=== PATIENT | female | born 1985 | race Caucasian/White ===

== ENCOUNTER 2017-10-19 20:01 | Inpatient (IN) | payer BC, OTHER ==
--- NOTE | 2017-10-19 21:58 | HP ---
General Information - General Information Maternal Age: 31 Grav: 1 Para: 0 SAB: 0 IEA: 0 Estimated Due Date: 10/19/17 Determined By: LMP Gestational Age in Weeks and Days: 40 Weeks and 0 Days Maternal Blood Type and Rh: O Positive - Results this Serology/RPR Result: Non-Reactive Rubella Result: Immune HBsAg Result: Negative HIV Result: Negative GBS Culture Result: Negative Past Medical History Delivery History: See Records Pertinent Past Medical History: See Records - back pain related to "mild" scoliosis Pertinent Past Surgical History: See Records - Stewart teeth, tonsillectomy Pertinent Family History: See Records - hypothyroidism, CHF, colon CA - Antepartal Records Antepartal Records: Reviewed, Uncomplicated Review of Systems Constitutional: Uncomfortable CV Complaint: No Respiratory: Shortness of Breath: No Gastrointestinal: No Nausea/Vomiting - Mild nausea Genitourinary: No Dysuria, No Bleeding, No Leaking Fluid Musculoskeletal: Contractions Neurological: No Headache, No Visual Changes Movement: Normal Exam Allergies/Adverse Reactions: Allergies No Known Allergies Allergy (Verified 10/19/17 20:29) BP 118/76 T 36.5 HR 69 RR 20 02 100 - Measurements Height: 5 ft 5 in Weight: 149 lb Weight in lbs: 149 Body Mass Index (BMI): 24.7 Pre- Weight: 115 lb Weight Gained This : 34 lbs and 0 ozs - Exam Abdomen: No Upper Quadrant Pain Breast: Breast Exam Deferred CVA: No CVA Tenderness Extremities: No Edema Heart: Normal Rhythm/Heart Sounds HEENT: No Significant Findings Lungs: Clear Bilaterally Rectal: Rectal Exam Deferred Reflexes: DTR 2+ - no clonus - Cervical Exam by RN 4cm/100/-1 vertex - Abdominal Exam Abdomen Exam: Non-Tender Abdomen Exam Comment: Vertex by Charlie's - Membranes Membrane Status: Intact - Ultrasound/Biophysical Profile Ultrasound Status: Not Done EFM Findings - External Monitor Findings Baseline Heart Rate: 150 External Monitor Findings: Accelerations Present, No Pattern of Variable or Late Decelerations, Variability Moderate Contractions: Regular, Moderate, 45-90 Seconds Assessment/Plan - Reason for Visit Reason for Visit: IUP @ 40 weeks gestation, intact bag of conley, No evidence metabolic acidemia - Plan Plan: Early Labor - Desires CHEMO. Anticipate SVB
[2017-10-19 22:07] LABS: Hematocrit 29 % (35-47); Hemoglobin 9.6 g/dl (12.0-16.0); Mean Corpuscular HGB Conc 33 g/dl (31-36); Mean Corpuscular Hemoglobin 27 pg (27-31); Mean Corpuscular Volume 79 fL (80-97); Mean Platelet Volume 9 um3 (7.4-10.4); Platelet Count 323 10^3/ul (150-450); Red Blood Count 3.63 10^6/ul (4.0-5.4); Red Cell Distribution Width 14 % (10.5-15); White Blood Count 9.9 10^3/ul (3.5-10.8)
[2017-10-19] MEDS ORDERED: OBEPIDURAL* 250 ML EPIDURAL ONE (22:07)
[2017-10-19 22:25] LABS: ABS Basophils 0.1 10^3/ul (0-0.2); ABS Eosinophils 0.1 10^3/ul (0-0.6); ABS Lymphocytes 1.6 10^3/ul (1.0-4.8); ABS Monocytes 0.7 10^3/ul (0-0.8); ABS Neutrophils 7.5 10^3/ul (1.5-7.7); ABS Nucleated RBC 0 10^3/ul; Eosinophil % 0.7 % (0-6); Lymphocyte % 16.2 % (25-47); Nucleated Red Blood Cells % 0.1
[2017-10-19] MEDS ORDERED: Phenylephrine IV* 40 MCG/ML 10 ML SYRINGE IV PUSH PRN (22:40)
[2017-10-19] MEDS ORDERED: EPHEDrine (Pressors)* 50 MG/ML VIAL IV PUSH PRN (22:40)
[2017-10-19] MEDS ORDERED: Famotidine TAB* 20 MG PO PRN (22:40)
[2017-10-19] MEDS ORDERED: Sodium Citrate/Citric Acid* 15 ML UDC PO PRN (22:40)
[2017-10-19] MEDS ORDERED: OBEPIDURAL* 250 ML EPIDURAL SCH (23:00)
[2017-10-20] MEDS ORDERED: Oxytocin in LR* 20 UNITS/1,000 ML BAG IVPB SCH (01:00)
[2017-10-20] MEDS ORDERED: Buffered Lidocaine 0.9% SYRIN* 5 ML/SYR SYRINGE INTRADERM ONE (11:25)
[2017-10-20] MEDS ORDERED: Sodium Citrate/Citric Acid* 15 ML UDC PO ONE (11:25)
[2017-10-20] MEDS ORDERED: Famotidine IV* 10 MG/ML 2 ML (20 mg) IV ONE (11:25)
[2017-10-20] MEDS ORDERED: Famotidine IV* 10 MG/ML 2 ML (20 mg) ONE (11:33)
[2017-10-20] MEDS ORDERED: Sodium Citrate/Citric Acid* 15 ML UDC ONE (11:33)
[2017-10-20] MEDS ORDERED: OXYTOCIN* 10 UNITS/ML 1 ML VIAL ONE (11:35)
[2017-10-20] MEDS ORDERED: Ondansetron INJ* 2 MG/ML VIAL ONE (11:35)
[2017-10-20] MEDS ORDERED: Dexamethasone IV* 4 MG/ML 1 ML (4 MG) ONE (11:35)
[2017-10-20] MEDS ORDERED: Morphine PF AMP (0.5MG/ML)* 5 MG/10 ML AMP ONE (11:35)
[2017-10-20] MEDS ORDERED: ceFOXitin(*) 2 GM in NS 0.9% 100 ML* 100 ML IVPB ONE (12:00)
[2017-10-20] MEDS ORDERED: DiMENhydriNATE IV* 50 MG/ML VIAL IV PUSH PRN (12:43)
[2017-10-20] MEDS ORDERED: Scopolamine 1.5 mg* PATCH TRANSDERM PRN (12:43)
[2017-10-20] MEDS ORDERED: oxyCODONE/Acetamin 5/325 MG* TAB PO PRN ×2 (12:43)
[2017-10-20] MEDS ORDERED: Naloxone* 0.4 MG/ML 1 ML VIAL IV PRN ×2 (12:43)
[2017-10-20] MEDS ORDERED: Ondansetron INJ* 2 MG/ML VIAL IV PRN (12:43)
[2017-10-20] MEDS ORDERED: Nalbuphine* 20 MG/ML 1 ML VIAL IV PRN ×2 (12:43)
[2017-10-20] MEDS ORDERED: Acetaminophen TAB* 325 MG PO PRN (13:19)
[2017-10-20] MEDS ORDERED: Dibucaine 1% 28.35 GM TUBE PR PRN (13:19)
[2017-10-20] MEDS ORDERED: Ibuprofen TAB* 600 MG PO PRN (13:19)
[2017-10-20] MEDS ORDERED: Zolpidem TAB* 5 MG PO PRN (13:19)
[2017-10-20] MEDS ORDERED: Witch Hazel PAD* JAR TOPICAL PRN (13:19)
[2017-10-20] MEDS ORDERED: Glycerin ADULT SUPP PR PRN (13:19)
[2017-10-20] MEDS: Ketorolac INJ* 30 MG/ML 1 ML VIAL IV PRN (21:35)
[2017-10-20] MEDS: Ibuprofen TAB* 600 MG PO SCH (22:21)
[2017-10-20] MEDS: Simethicone TAB* 80 MG TAB.CHEW PO SCH (22:22)
[2017-10-20] MEDS: Docusate CAP* 100 MG PO SCH (22:22)
[2017-10-21] MEDS: Ketorolac INJ* 30 MG/ML 1 ML VIAL IV PRN (04:08)
[2017-10-21] MEDS ORDERED: oxyCODONE/Acetamin 5/325 MG* TAB PO PRN (04:43)
[2017-10-21 06:31] LABS: ABS Basophils 0 10^3/ul (0-0.2); ABS Eosinophils 0 10^3/ul (0-0.6); ABS Lymphocytes 1.6 10^3/ul (1.0-4.8); ABS Monocytes 0.9 10^3/ul (0-0.8); ABS Neutrophils 13.6 10^3/ul (1.5-7.7); ABS Nucleated RBC 0 10^3/ul; Eosinophil % 0.2 % (0-6); Hematocrit 22 % (35-47); Hemoglobin 7.2 g/dl (12.0-16.0); Lymphocyte % 10.1 % (25-47); Mean Corpuscular HGB Conc 33 g/dl (31-36); Mean Corpuscular Hemoglobin 26 pg (27-31); Mean Corpuscular Volume 79 fL (80-97); Mean Platelet Volume 9 um3 (7.4-10.4); Nucleated Red Blood Cells % 0.1; Platelet Count 232 10^3/ul (150-450); Red Blood Count 2.75 10^6/ul (4.0-5.4); Red Cell Distribution Width 15 % (10.5-15); White Blood Count 16.2 10^3/ul (3.5-10.8)
[2017-10-21] MEDS: Docusate CAP* 100 MG PO SCH ×3 (08:55→20:51)
[2017-10-21] MEDS: Simethicone TAB* 80 MG TAB.CHEW PO SCH ×4 (08:55→20:51)
[2017-10-21] MEDS: Ibuprofen TAB* 600 MG PO SCH ×3 (09:58→23:26)
[2017-10-21] MEDS: Ferrous Gluconate TAB* 324 MG TAB PO SCH ×2 (10:00→20:51)
[2017-10-21] MEDS: oxyCODONE/Acetamin 5/325 MG* TAB PO PRN ×2 (17:03→20:54)
[2017-10-22] MEDS: oxyCODONE/Acetamin 5/325 MG* TAB PO PRN ×4 (04:19→18:41)
[2017-10-22] MEDS: Ferrous Gluconate TAB* 324 MG TAB PO SCH ×2 (08:05→21:16)
[2017-10-22] MEDS: Ibuprofen TAB* 600 MG PO SCH ×3 (08:05→21:16)
[2017-10-22] MEDS: Docusate CAP* 100 MG PO SCH ×3 (08:05→21:16)
[2017-10-22] MEDS: Simethicone TAB* 80 MG TAB.CHEW PO SCH ×4 (08:05→21:16)
[2017-10-22 19:35] VITALS: BP 123/70
[2017-10-23] MEDS: Ibuprofen TAB* 600 MG PO SCH ×2 (03:18→12:49)
[2017-10-23] MEDS: oxyCODONE/Acetamin 5/325 MG* TAB PO PRN (09:22)
[2017-10-23] MEDS: Ferrous Gluconate TAB* 324 MG TAB PO SCH (12:48)
[2017-10-23] MEDS: Docusate CAP* 100 MG PO SCH (12:48)
[2017-10-23] MEDS: Simethicone TAB* 80 MG TAB.CHEW PO SCH (12:48)
--- NOTE | 2017-10-25 01:14 | OP ---
DATE OF OPERATION: 10/20/17 - ROOM #104 DATE OF : 87 SURGEON: Pietro Husain MD APPLICATIONS MANAGER: Blanca Weiner CM ANESTHESIA: Spinal. PRE-OP DIAGNOSIS: at 40 weeks in labor when arrest of descent and dilation. POST-OP DIAGNOSIS: at 40 weeks in labor when arrest of descent and dilation. OPERATIVE PROCEDURE: Primary low transverse section. ESTIMATED BLOOD LOSS: 600 cc. FLUIDS: She received 1400 cc of crystalloid fluid. URINE OUTPUT: Clear. SPECIMENS SENT TO PATHOLOGY: Cord blood. FINDINGS: Delivery of a male infant weighing 9 pounds 11 ounces with Apgars of 9 and 9. The placenta, uterus, adnexa, bowel, and bladder were all within normal limits. COMPLICATIONS: There were no complications. DESCRIPTION OF PROCEDURE: The patient was taken to the operating room, where she was identified. She was placed on the operating table, where a spinal anesthetic was obtained without difficulty. She was then placed in the supine position with a leftward tilt, prepped and draped in a normal sterile fashion. A Pfannenstiel skin incision was made with a knife and carried through to the underlying layer of fascia. The fascia was nicked in the midline and extended laterally with curved Harding scissors. The fascia was grasped superiorly and inferiorly with Aby clamps and dissected off sharply from the rectus muscle. The rectus muscle was in the midline bluntly. The peritoneum was identified, grasped with pickups, and entered sharply with Metzenbaum scissors and extended superiorly and inferiorly bluntly. A bladder blade was inserted into the patient's abdomen. A bladder flap was created using Metzenbaum scissors over which the bladder blade was then reinserted. A low transverse uterine incision was made with a knife and extended laterally with bandage scissors. The 's head was then grasped and delivered atraumatically. The rest of the infant's body was then delivered. The cord was clamped and cut. The infant was then handed off to awaiting attorney lawyer. Cord bloods were obtained. The placenta was removed manually. The uterus was then exteriorized, cleared of all clot and debris using moist laparotomy sponges. The uterine incision was then closed using 0 Polysorb suture in a running locked fashion and a second imbricating layer of 0 Polysorb suture was performed. The uterine incision was noted to be hemostatic. The uterus was then returned to the patient's abdomen. The gutters were then cleared of all clots and debris using moist laparotomy sponges. All the sponges were then removed from the patient's abdomen. The peritoneum was then closed using 3-0 Polysorb suture in a running fashion. The fascia was closed using 0 Polysorb suture in a running fashion and the skin was closed with 4-0 Monocryl subcuticular stitch. The patient tolerated the procedure well. Sponge, lap, needle counts were correct x2. She was then transferred to the recovery room area in stable condition. [id number]/[facility] #: [id number] [facility]
== END 2017-10-23 13:06 | disposition home or self-care (01) | DRG 766 ==
LOC: MCHOBOUT 20:01 → MCHOB 21:36
PROVIDERS: ADMIT Midwife; ATTEND Obstetrics & Gynecology
PROC: 10907ZC Drainage of Amniotic Fluid, Therapeutic from Products of Conception, Via Natural or Artificial Opening (ICD-10-PCS; 2017-10-20)
PROC: 10D00Z1 Extraction of Products of Conception, Low, Open Approach (ICD-10-PCS; principal; 2017-10-20 12:07)
DX: O32.4XX0 Maternal care for high head at term, not applicable or unspecified (principal); O48.0 Post-term pregnancy; O62.0 Primary inadequate contractions; Z3A.40 40 weeks gestation of pregnancy; Z37.0 Single live birth
CPT/HCPCS: 36415; 85025; 86850; 86900; 86901; A9270-GY; J0694; J1100; J1240; J1885; J2405; J2590

== ENCOUNTER 2019-03-22 08:05 | Emergency (ER) | payer BC ==
[2019-03-22 08:15] VITALS: BP 100/66
--- NOTE | 2019-03-22 08:53 | UC ---
Throat Pain/Nasal Dev HPI - HPI Summary HPI Summary: 33-year-old female with a history of strep throat 1 week ago treated with amoxicillin presents with throat pain for 1 day. Patient states she noticed worsening sore throat as well as spots on her tonsils came to urgent care. Patient has a history of a prior FORGER HELPER requiring drainage after wisdom tooth surgery several years ago. Patient denies trouble swallowing, difficulty breathing. - History of Current Complaint Chief Complaint: UCGeneralIllness Stated Complaint: SORE THROAT Time Seen by Provider: 03/22/19 08:17 Hx Last Menstrual Period: 03/22/19 Pain Intensity: 5 - Allergies/Home Medications Allergies/Adverse Reactions: Allergies Allergy/AdvReac Type Severity Reaction Status Date / Time No Known Allergies Allergy Verified 03/03/19 07:45 PMH/Surg Hx/FS Hx/Imm Hx Previously Healthy: Yes - Surgical History Surgical History: Yes Surgery Procedure, Year, and Place: c/sec - Family History Known Family History: Positive: None, Non-Contributory - Social History Alcohol Use: None Substance Use Type: None Smoking Status (MU): Never Smoked Tobacco - Immunization History Most Recent Influenza Vaccination: 05/2017 Most Recent Pneumonia Vaccination: n/a Review of Systems All Other Systems Reviewed And Are Negative: Yes ENT: Positive: Sore Throat Physical Exam - Summary Physical Exam Summary: General: Well appearing, no distress HEENT: Tonsillar erythema and hypertrophy with exudate, uvula is midline. Cardiac: tachycardic, regular, 2+ radial pulses Pulmonary: No respiratory distress, no tachypnea Abdomen: Non-distended Skin: Warm, pink, dry LAD: + cervical LAD Psych: Normal affect Neuro: A&Ox3 Vital Signs: Initial Vital Signs Temp 37.0 C 03/22/19 08:12 Pulse 110 03/22/19 08:12 Resp 18 03/22/19 08:12 BP 100/66 03/22/19 08:12 Pulse Ox 99 03/22/19 08:12 Throat Pain/Nasal Course/Dx - Course Course Of Treatment: 33 y/o female with recent strep a pharyngitis presents with sore throat for several days Vital signs notable for mild tachycardia suspect secondary to pain. Afebrile and well-appearing. Discussed with the patient we will try a different antibiotic, Keflex as she had just finished a course of amoxicillin. Also discussed with patient she could be a chronic carrier. Patient has a history of a FORGER HELPER in the past after wisdom tooth surgery. I discussed with her as possible she has a small FORGER HELPER which could be the cause for her recurrence. On exam she doesn't appear to have a FORGER HELPER and has a midline uvula. Patient given ENT referral and instructed to go to the Emergency department if she continues to have symptoms despite antibiotics, or worsening pain, trouble swallowing or difficulty breathing sent throat culture - Differential Dx/Diagnosis Provider Diagnosis: Tonsillitis Discharge - Sign-Out/Discharge Documenting (check all that apply): Patient Departure All imaging exams completed and their final reports reviewed: No Studies - Discharge Plan Condition: Stable Disposition: HOME Prescriptions: Cephalexin CAP* [Keflex CAP*] 500 mg PO BID 10 Days #20 cap Patient Education Materials: Strep Throat (DC) Referrals: Kimberlee Mukherjee MD [Primary Care Provider] - Naren Horowitz MD [Medical Doctor] - If Needed () Additional Instructions: You were seen in urgent care for sore throat, her strep test was positive. We' ll treat she was a different antibiotic called Keflex which she'll take twice a day for 10 days. Please follow up with ENT or go to the emergency department if you have continued pain, trouble swallowing or concerned - Billing Disposition and Condition Condition: STABLE Disposition: Home
--- NOTE | 2019-03-24 17:00 | UC ---
- Progress Note Progress Note: + strep Pt started on clinda in ED no change peterj 03/24/19 Course/Dx - Diagnoses Provider Diagnoses: Tonsillitis Discharge - Sign-Out/Discharge Documenting (check all that apply): Post-Discharge Follow Up All imaging exams completed and their final reports reviewed: No Studies - Discharge Plan Condition: Stable Disposition: HOME Patient Education Materials: Strep Throat (DC) Referrals: Naren Horowitz MD [Medical Doctor] - If Needed () Kimberlee Mukherjee MD [Primary Care Provider] - Additional Instructions: You were seen in urgent care for sore throat, her strep test was positive. We' ll treat she was a different antibiotic called Keflex which she'll take twice a day for 10 days. Please follow up with ENT or go to the emergency department if you have continued pain, trouble swallowing or concerned - Billing Disposition and Condition Condition: STABLE Disposition: Home
== END 2019-03-22 09:03 | disposition home or self-care (01) ==
LOC: UCEAST 08:05
DX: J03.90 Acute tonsillitis, unspecified (principal)
CPT/HCPCS: 87070; 87077; 87651; 99212; G0463

== ENCOUNTER 2019-03-24 08:21 | Emergency (ER) | payer BC ==
--- NOTE | 2019-03-24 08:38 | ED ---
Throat Pain/Nasal Congestion - HPI Summary HPI Summary: 33-year-old female presents with complaints of worsening sore throat. She was seen at the [facility] urgent care on 03/22/2019 for one-week history of sore throat. Patient tested positive for strep and was started on Keflex 500 mg twice a day. Patient had been seen and diagnosed with strep prior to this on 03/03/2019 and completed a ten-day course of amoxicillin. Patient states that over the last 2 days her sore throat has worsened and it has become more difficult to swallow. States the swelling appears to be worse on the left side of her throat. Pain is radiating into the left ear. States she had fever as high as 101 F. No fever in the last 24 hours although she has been taking ibuprofen regularly. Patient has a past history of a peritonsillar abscess. Denies dysphagia, nasal congestion, runny nose, cough, difficulty breathing, abdominal pain, nausea, or vomiting. - History of Current Complaint Chief Complaint: EDThroatPain Time Seen by Provider: 03/24/19 08:28 Hx Obtained From: Patient - Allergies/Home Medications Allergies/Adverse Reactions: Allergies Allergy/AdvReac Type Severity Reaction Status Date / Time No Known Allergies Allergy Verified 03/03/19 07:45 PMH/Surg Hx/FS Hx/Imm Hx Previously Healthy: Yes - Denies significant PMH - Cancer History Cancer Type, Location and Year: denies - Surgical History Surgery Procedure, Year, and Place: c/sec Infectious Disease History: No Infectious Disease History: Denies: Traveled Outside the [place] in Last 30 Days - Family History Known Family History: Positive: Non-Contributory - Social History Occupation: Employed Full-time Lives: With Family Alcohol Use: None Substance Use Type: Reports: None Smoking Status (MU): Never Smoked Tobacco Review of Systems Positive: Fever Eyes: Negative Positive: Sore Throat Cardiovascular: Negative Negative: Shortness Of Breath Gastrointestinal: Negative Genitourinary: Negative Musculoskeletal: Negative Skin: Negative Neurological: Negative All Other Systems Reviewed And Are Negative: No Physical Exam - Summary Physical Exam Summary: GENERAL APPEARANCE: Well developed, well nourished, alert and cooperative, and appears to be in no acute distress. EYES: Conjunctiva clear. No drainage. EARS: External auditory canals and tympanic membranes clear, hearing grossly intact. NOSE: No nasal discharge. THROAT: Pharyngeal erythema. 3+ tonsils with exudate. Large abscess with uvula deviation to the right. Mild trismus. Airway patent. NECK: Neck supple. Significant anterior cervical lymphadenopathy especially on the left. CARDIAC: Normal S1 and S2. No S3, S4 or murmurs. Rhythm is regular. There is no peripheral edema, cyanosis or pallor. Extremities are warm and well perfused. Capillary refill is less than 2 seconds. Peripheral pulses intact. LUNGS: Clear to auscultation without rales, rhonchi, wheezing or diminished breath sounds. ABDOMEN: Positive bowel sounds. Soft, nondistended, nontender. No guarding or rebound. No masses or hepatosplenomegally. MUSKULOSKELETAL: ROM intact to all extremities. No joint erythema or tenderness. Normal muscular development. Normal gait. SKIN: Skin normal color, texture and turgor with no lesions or eruptions. Triage Information Reviewed: Yes Vital Signs On Initial Exam: Initial Vitals Temp Pulse Resp BP Pulse Ox 98.6 F 98 16 124/86 99 03/24/19 08:23 03/24/19 08:23 03/24/19 08:23 03/24/19 08:23 03/24/19 08:23 Vital Signs Reviewed: Yes Diagnostics - Vital Signs Vital Signs Temp Pulse Resp BP Pulse Ox 03/24/19 08:23 98.6 F 98 16 124/86 99 - Laboratory Result Diagrams: 03/24/19 09:20 03/24/19 09:20 Lab Statement: Any lab studies that have been ordered have been reviewed, and results considered in the medical decision making process. - CT No standard instances CT Interpretation Completed By: Radiologist Summary of CT Findings: Patient Name: CARY AGUILLON Medical Record#: [id number]. Ordering Physician: Segun Meek NP Acct.#: [id number]. : 1985 Age: 33 Sex: F Location: EMERGENCY DEPARTMENT. Exam Date: 03/24/19846 ADM Status: REG ER. Order Information: CT SOFT TISSUE NECK W. Accession Number: [id number]. CPT: 06930. INDICATION: Sore throat. COMPARISON: None. TECHNIQUE: A CT scan of the neck was performed with intravenous contrast following intravenous injection of 50 ml of Omnipaque 300 nonionic contrast. Contiguous axial sections were obtained from the skull base through the lung apices. Images were reconstructed in the coronal and sagittal planes. FINDINGS : The airway is patent. The epiglottis and aryepiglottic folds appear within normal limits. There is enlargement of the left palatine tonsil. Within the left palatine tonsil there is vaguely defined hypodense soft tissue enlargement measuring up to 1.8 x 2.4 cm in the axial plane (series 2 image 80). There is no definite wall to constitute an abscess cavity. There is asymmetric enlargement of the left cervical chain lymph nodes measuring up to 8 mm in short axis diameter in the coronal plane (image 60) but none of the visualized lymph nodes are pathologically enlarged. The parotid and submandibular glands appear to be within normal limits. The thyroid gland appears normal. The lung apices appear clear. The visualized portion of the paranasal sinuses and mastoid air cells appear clear. There is reversal of the normal cervical lordosis but the vertebral bodies and facet joints are otherwise anatomically aligned. IMPRESSION: 1. There is ill-defined enlargement of the left palatine tonsil measuring up to 1.8 x 2.4 cm in the axial plane but currently there is no well-defined wall constituting an abscess or a definite drainable fluid collection. 2. Left cervical chain lymphadenopathy but without pathologic enlargement. EENT Course/Dx - Course Course Of Treatment: 33-year-old female presents with complaints of worsening sore throat. She was seen at the [facility] urgent care on 03/22/2019 for one-week history of sore throat. Patient tested positive for strep and was started on Keflex 500 mg twice a day. Patient had been seen and diagnosed with strep prior to this on 03/03/2019 and completed a ten-day course of amoxicillin. Patient states that over the last 2 days her sore throat has worsened and it has become more difficult to swallow. States the swelling appears to be worse on the left side of her throat. Pain is radiating into the left ear. States she had fever as high as 101 F. No fever in the last 24 hours although she has been taking ibuprofen regularly. Patient has a past history of a peritonsillar abscess. Denies dysphagia, nasal congestion, runny nose, cough, difficulty breathing, abdominal pain, nausea, or vomiting. Afebrile. Mildly tachycardic otherwise vital signs stable. Patient had pharyngeal erythema, 3+ tonsils with exudate, abscess with uvula deviation to the right and mild trismus. Airway patent. Significant anterior cervical lymphadenopathy especially on the left. Remainder of exam was unremarkable. Patient was given clindamycin 300 mg IV and methylprednisolone 125 mg IV. Due to the trismus a CT soft tissue neck with contrast was obtained and showed an ill-defined enlargement of the left palatine tonsil with no well-defined wall constituting an abscess as well as left cervical chain lymphadenopathy without pathologic enlargement. CBC showed a white count of 7.0 and a mild normocytic anemia. BMP was normal. I reviewed the results with the patient. I did not have ENT national account director and so I discussed a possible overnight observation admission with ENT consultation in the morning with the patient however she does not want to be admitted and would prefer outpatient treatment and follow-up in the clinic. Patient demonstrates a clear understanding of her condition and I feel she is responsible enough that she would return for any worsening of her condition therefore we'll discharge her on clindamycin 300 mg 3 times a day 10 days and have her start prednisone 50 mg daily 4 days starting tomorrow. She is to call the ENT clinic first thing tomorrow morning to schedule an appointment. Disfigurements and warning symptoms were reviewed the patient. Verbalizes understanding and agrees with plan of care. - Differential Diagnoses Differential Diagnoses: Pharyngitis, Tonsilitis, Other - Peritonsilar abscess - Diagnoses Provider Diagnoses: Strep throat, Tonsillar hypertrophy, unilateral Discharge - Sign-Out/Discharge Documenting (check all that apply): Patient Departure Patient Received Moderate/Deep Sedation with Procedure: No - Discharge Plan Condition: Stable Disposition: HOME Prescriptions: Clindamycin HCl 300 mg PO Q8HR #30 capsule predniSONE TAB* [Deltasone TAB*] 50 mg PO DAILY #4 tab Patient Education Materials: Strep Throat (ED) Referrals: Kimberlee Mukherjee MD [Primary Care Provider] - Naren Horowitz MD [Medical Doctor] - 1 Day Additional Instructions: The CT scan of your neck showed tonsillar swelling and enlarged lymph nodes but no obvious abscess. Your blood work was normal. You were given a dose of an antibiotic called clindamycin in the emergency room. We will have you continue taking clindamycin 300 mg 3 times a day for 10 days. Stop taking the cephalexin. You're given a dose of a steroid called methylprednisolone in the emergency room. I'm going to have you continue steroids for the next few days. Take prednisone 50 mg daily for the next 4 days starting tomorrow. Continue using acetaminophen (Tylenol) or ibuprofen (Advil, Motrin) according directions as needed for pain. Follow-up at the Ears, Nose, Throat clinic tomorrow. Call first thing in the morning to schedule an appointment. Return to the emergency room if you develop a persistent fever greater than 100.5 F, you are unable to open your mouth, you're unable to swallow, have any difficulty breathing, or any worsening of your symptoms. - Billing Disposition and Condition Condition: STABLE Disposition: Home
[2019-03-24] MEDS ORDERED: Clindamycin 300 MG IVPREMIX(* 300 MG in PREMIX* 1 ML IV ONE (08:46)
[2019-03-24] MEDS ORDERED: methylPREDNISolone 125 MG* 2 ML VIAL IV ONE (08:46)
[2019-03-24] MEDS ORDERED: NS 0.9% 1000 ML** 1,000 ML IV ONE (08:46)
[2019-03-24 09:33] LABS: ABS Basophils 0.1 10^3/ul (0-0.2); ABS Eosinophils 0.2 10^3/ul (0-0.6); ABS Lymphocytes 1.7 10^3/ul (1.0-4.8); ABS Monocytes 0.6 10^3/ul (0-0.8); ABS Neutrophils 4.4 10^3/ul (1.5-7.7); Hematocrit 34 % (35-47); Hemoglobin 11.4 g/dL (12.0-16.0); Lymphocyte % 24.1 %; Mean Corpuscular HGB Conc 34 g/dL (31-36); Mean Corpuscular Hemoglobin 28 pg (27-31); Mean Corpuscular Volume 82 fL (80-97); Mean Platelet Volume 8.7 fL (7.4-10.4); Nucleated Red Blood Cells % 0.1; Platelet Count 350 10^3/uL (150-450); Red Blood Count 4.13 10^6 /uL (3.70-4.87); Red Cell Distribution Width 14 % (10-15)
[2019-03-24] MEDS ORDERED: Lidocaine 4% TOPICAL* 50 ML TOP.SOLN TOPICAL ONE (10:00)
[2019-03-24] MEDS ORDERED: Lidocaine 1% INJ* 10 MG/ML 30 ML SDV INJ ONE (10:00)
[2019-03-24 10:34] LABS: BUN/Creatinine Ratio 8.8 (8-20); Calcium 9.1 mg/dL (8.6-10.3); EGFR African American 148.7 (>60); EGFR Non-African American 122.9 (>60); Potassium 4.2 mmol/L (3.5-5.0)
[2019-03-24] MEDS ORDERED: Iohexol 300* (CONTRAST) 10 ML SDV IV ONE (10:37)
[2019-03-24 12:47] VITALS: BP 115/71
== END 2019-03-24 12:46 | disposition home or self-care (01) ==
LOC: ED 08:21
DX: J02.0 Streptococcal pharyngitis (principal); J35.1 Hypertrophy of tonsils
CPT/HCPCS: 36415; 70491; 80048; 83605; 85025; 87040; 96365; 96366; 96372; 96375; 99282; J2930; Q9967